=== PATIENT | female | born 1990 | race Asian ===

== ENCOUNTER 2017-04-04 12:55 | Emergency (ER) | payer MEDICAID ==
[2017-04-04 14:39] VITALS: BP 97/58
[2017-04-04 14:49] LABS: BILIRUBIN,URINE NEGATIVE (NEGATIVE); GLUCOSE, URINE (UA) NEGATIVE (NEGATIVE); KETONES,URINE (UA) NEGATIVE (NEGATIVE); LEUKOCYTE ESTERASE, URINE MODERATE (NEGATIVE); NITRITE,URINE NEGATIVE (NEGATIVE); OCCULT BLOOD,URINE SMALL (NEGATIVE); PROTEIN,URINE TRACE mg/dL (NEGATIVE); UROBILINOGEN,URINE 0.2 (NORMAL) E.U./dL (NORMAL)
[2017-04-04 14:51] LABS: CLARITY,URINE CLOUDY (CLEAR); HCG UR QUAL POSITIVE
[2017-04-04 15:06] LABS: SQUAMOUS EPITHELIAL CELL,UR MANY Squamous (<= Few)
[2017-04-04 15:07] LABS: BACTERIA,URINE Many /HPF (None Seen); MUCUS,URINE Moderate Strands
--- NOTE | 2017-04-04 16:17 | ED Physician Documentation ---
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 She has developed some urinary urgency frequency and dysuria and some lower abdominal cramping. She has developed some nausea today. She has not had any vomiting. She was seen at [facility] this morning and given 1 g of azithromycin along with her partner. Review of Systems Constitutional: denies: Fever Eyes: denies: Decreased vision Ears: denies: Ear pain Nose: denies: Congestion Throat: denies: Sore throat Cardiac: denies: Chest pain / pressure Respiratory: denies: Dyspnea, Cough GI: reports: Abdominal Pain, Nausea. denies: Vomiting : reports: Dysuria, Frequency Skin: denies: Rash Musculoskeletal: denies: Neck pain, Back pain, Extremity pain PD PAST MEDICAL HISTORY - Present Medications Home Medications: Ambulatory Orders Medication Instructions Recorded Confirmed Nitrofurantoin [Macrobid] 100 mg PO BID #10 capsule 04/04/17 Phenazopyridine HCl [Pyridium] 200 mg PO Q8HR PRN #10 tablet 04/04/17 - Allergies Allergies/Adverse Reactions: Allergies Allergy/AdvReac Type Severity Reaction Status Date / Time No Known Drug Allergies Allergy Verified 04/04/17 13:03 PD ED PE NORMAL - Vitals Vital signs reviewed: Yes (normal ) - General General: Alert and oriented X 3, No acute distress, Well developed/nourished - HEENT HEENT: Atraumatic, PERRL, EOMI - Respiratory Respiratory: No respiratory distress - Abdomen Abdomen: Soft, Non tender - Back Back: No CVA TTP, No spinal TTP - Derm Derm: Normal color, Warm and dry, No rash - Extremities Extremities: No deformity - Neuro Neuro: No motor deficit, No sensory deficit Eye Opening: Spontaneous Motor: Obeys Commands Verbal: Oriented GCS Score: 15 - Psych Psych: Normal mood, Normal affect Results - Vitals Vitals: Vital Signs - 24 hr 04/04/17 04/04/17 13:01 14:37 Temperature 37.5 C 37.3 C Heart Rate 65 72 Respiratory 18 17 Rate Blood Pressure 96/45 L 97/58 L O2 Saturation 100 100 Oxygen O2 Source Room air - Labs Labs: Laboratory Tests 04/04/17 14:40 Urine Color YELLOW Urine Clarity CLOUDY Urine pH 6.0 Ur Specific [place] >=1.030 H Urine Protein TRACE Urine Glucose (UA) NEGATIVE Urine Ketones NEGATIVE Urine Occult Blood SMALL H Urine Nitrite NEGATIVE Urine Bilirubin NEGATIVE Urine Urobilinogen 0.2 (NORMAL) Ur Leukocyte Esterase MODERATE H Urine RBC 6-10 H Urine WBC >25 H Ur Squamous Epith Cells MANY Squamous H Urine Bacteria Many H Urine Mucus Moderate Strands Ur Microscopic Review INDICATED Urine Culture Comments NOT INDICATED Urine HCG, Qual POSITIVE Procedures - Bedside sono Bedside sono by EMP: With use of bedside ultrasound the pelvis is imaged and there is an 8 week gestational sac with a viable 8 and half week fetus with a heart rate of 156 bpm. PD MEDICAL DECISION MAKING - ED course Complexity details: reviewed results, re-evaluated patient, considered differential, d/w patient, d/w family ED course: 26-year-old female with pelvic cramping is found to have urinary tract infection with greater than 25 white cells per high-powered field. She does appear to have a viable fetus in the uterus on bedside ultrasound. We will place her on some Macrobid for urinary tract infection as well as Pyridium and she will follow-up with [facility]. Departure - Departure Disposition: Home, Self Care Clinical Impression: Early stage of Urinary tract infection Qualifiers: Urinary tract infection type: acute cystitis Hematuria presence: without hematuria Qualified Code(s): N30.00 - Acute cystitis without hematuria Condition: Stable Instructions: ED Preg Morning Sickness, ED Care, ED UTI Cystitis Female Follow-Up: [facility] [Provider Group] Prescriptions: Phenazopyridine HCl [Pyridium] 200 mg PO Q8HR PRN #10 tablet PRN Reason: bladder irritation Nitrofurantoin [Macrobid] 100 mg PO BID #10 capsule Forms: Activity restrictions
== END 2017-04-04 16:20 | disposition home or self-care (01) ==
LOC: ED 12:55
DX: O23.11 Infections of bladder in pregnancy, first trimester (principal); Z3A.09 9 weeks gestation of pregnancy
CPT/HCPCS: 81001; 81003; 81025; 87086; 99283

== ENCOUNTER 2017-04-18 04:48 | Emergency (ER) | payer MEDICAID ==
[2017-04-18 05:10] LABS: BILIRUBIN,URINE NEGATIVE (NEGATIVE); GLUCOSE, URINE (UA) NEGATIVE (NEGATIVE); KETONES,URINE (UA) 15 mg/dL (NEGATIVE); LEUKOCYTE ESTERASE, URINE TRACE (NEGATIVE); NITRITE,URINE NEGATIVE (NEGATIVE); OCCULT BLOOD,URINE NEGATIVE (NEGATIVE); PROTEIN,URINE NEGATIVE (NEGATIVE); UROBILINOGEN,URINE 0.2 (NORMAL) E.U./dL (NORMAL)
[2017-04-18 05:18] LABS: CLARITY,URINE HAZY (CLEAR); HCG UR QUAL POSITIVE
[2017-04-18 05:30] LABS: BACTERIA,URINE Few /HPF (None Seen); MUCUS,URINE Moderate Strands; RBC,URINE 0-5 /HPF (0-5); SQUAMOUS EPITHELIAL CELL,UR FEW Squamous (<= Few)
[2017-04-18] MEDS ORDERED: AMOX/CLAV 875 MG/125 MG TABLET PO STA (05:39)
[2017-04-18] MEDS ORDERED: ACETAMINOPHEN 500 MG TABLET PO STA (05:44)
--- NOTE | 2017-04-18 05:47 | ED Physician Documentation ---
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 patient states that she has had some pain with but this morning it was worse than usual. patient did not take anything for the pain. patient has not had care but has been to the emergency department for uti last week and was found to have a viable iup. Review of Systems Constitutional: denies: Fever, Chills Eyes: reports: Reviewed and negative Ears: reports: Reviewed and negative Nose: reports: Reviewed and negative Throat: reports: Reviewed and negative Cardiac: reports: Reviewed and negative Respiratory: reports: Reviewed and negative GI: reports: Abdominal Pain, Nausea. denies: Vomiting, Constipation, Diarrhea : reports: Discharge. denies: Dysuria, Frequency, Vaginal bleeding Skin: denies: Rash, Lesions Neurologic: denies: Generalized weakness, Focal weakness, Numbness Immunocompromised: denies: Immunocompromised PD PAST MEDICAL HISTORY - Past Medical History Past Medical History: Yes - Past Surgical History Past Surgical History: Yes General: Appendectomy - Present Medications Home Medications: Ambulatory Orders Medication Instructions Recorded Confirmed Nitrofurantoin [Macrobid] 100 mg PO BID #10 capsule 04/04/17 Phenazopyridine HCl [Pyridium] 200 mg PO Q8HR PRN #10 tablet 04/04/17 Amox/Clav 875/125 [Augmentin] 1 each PO Q12H #14 tablet 04/18/17 - Allergies Allergies/Adverse Reactions: Allergies Allergy/AdvReac Type Severity Reaction Status Date / Time No Known Drug Allergies Allergy Verified 04/04/17 13:03 - Social History Does the pt smoke?: No Smoking Status: Never smoker Does the pt drink ETOH?: Yes Does the pt have substance abuse?: No - Immunizations Immunizations are current?: Yes PD ED PE NORMAL - Vitals Vital signs reviewed: Yes - General General: Alert and oriented X 3, No acute distress - HEENT HEENT: Atraumatic, PERRL - Neck Neck: Supple, no meningeal sign, No JVD - Cardiac Cardiac: RRR, No murmur - Respiratory Respiratory: No respiratory distress - Abdomen Abdomen: Soft - Derm Derm: Normal color, Warm and dry, No rash - Neuro Neuro: Alert and oriented X 3, No motor deficit, No sensory deficit, Normal speech PD ED PE EXPANDED - Abdomen Abdomen: Tender to palpation, RLQ - Female Female : Vaginal Discharge. No: Dilated cervix, Tissue present Results - Vitals Vitals: Vital Signs - 24 hr 04/18/17 04:51 Temperature 36.9 C Heart Rate 80 Respiratory 16 Rate Blood Pressure 97/59 L O2 Saturation 100 Oxygen O2 Source Room air - Labs Labs: Laboratory Tests 04/18/17 05:03 Urine Color YELLOW Urine Clarity HAZY Urine pH 6.0 Ur Specific [place] >=1.030 H Urine Protein NEGATIVE Urine Glucose (UA) NEGATIVE Urine Ketones 15 H Urine Occult Blood NEGATIVE Urine Nitrite NEGATIVE Urine Bilirubin NEGATIVE Urine Urobilinogen 0.2 (NORMAL) Ur Leukocyte Esterase TRACE H Urine RBC 0-5 Urine WBC 11-25 H Ur Squamous Epith Cells FEW Squamous Urine Bacteria Few Urine Mucus Moderate Strands Ur Microscopic Review INDICATED Urine Culture Comments INDICATED Urine HCG, Qual POSITIVE PD MEDICAL DECISION MAKING - ED course Complexity details: reviewed old records, reviewed results, re-evaluated patient , considered differential, d/w patient, d/w family ED course: Patient was seen and examined at bedside. urine was collected. pelvic exam was performed. bedside ultrasound was performed and showed a viable iup with normal heart rate. Patient was found to have some persistent bacteria and was started on augmentin, which would also cover for ghonorrea. (patient was treated for chlamydia). Patient was made aware of the findings and was stable for discharge and outpatient follow up. (patient had follow up next week ) Departure - Departure Disposition: 01 Home, Self Care Clinical Impression: Urinary tract infection, Early stage of Condition: Good Instructions: ED UTI Cystitis Female Follow-Up: primary,care provider [Other] - Within 1 week Prescriptions: Amox/Clav 875/125 [Augmentin] 1 each PO Q12H #14 tablet Comments: Your fetus is well appearing today. Your symptoms could be caused by your fibroid or part of your . You also were found to have a few bacteria in your urine so you are being started on another antibiotic. Your culture results will be back in a few days and you will be called with the results. it is important to stay well hydrated. You should follow up with your doctor on thursday. You may return to the emergency department at any time for new, worsening or uncontrollable symptoms. Forms: Activity restrictions
[2017-04-18 06:04] VITALS: BP 106/64
== END 2017-04-18 06:04 | disposition home or self-care (01) ==
LOC: ED 04:48
DX: O23.41 Unspecified infection of urinary tract in pregnancy, first trimester (principal); B96.89 Other specified bacterial agents as the cause of diseases classified elsewhere; Z3A.10 10 weeks gestation of pregnancy
CPT/HCPCS: 81001; 81025; 87086; 87210; 87491; 87591; 99283; 99284; A9270; 81003

== ENCOUNTER 2023-09-30 10:14 | Emergency (ER) | payer MEDICAID ==
[2023-09-30 10:29] VITALS: BP 107/63; O2SAT 99
[2023-09-30 11:27] LABS: B. PARAPERTUSSIS- RESP PCR PAN NOT DETECTED; B. PERTUSSIS- RESP PCR PANEL NOT DETECTED; C. PNEUMONIAE- RESP PCR PANEL NOT DETECTED; CORONAVIRUS 229E-RESP PCR NOT DETECTED; CORONAVIRUS HKU1-RESP PCR NOT DETECTED; CORONAVIRUS NL63-RESP PCR NOT DETECTED; CORONAVIRUS OC43-RESP PCR NOT DETECTED; HUMAN METAPNEUMOVIRUS NOT DETECTED; INFLUENZA A- RESP PCR PANEL NOT DETECTED; INFLUENZA B - RESP PCR PANEL NOT DETECTED; M. PNEUMONIAE- RESP PCR PANEL NOT DETECTED; PARAINFLUENZA VIRUS 1 NOT DETECTED; PARAINFLUENZA VIRUS 2 NOT DETECTED; PARAINFLUENZA VIRUS 3 NOT DETECTED; PARAINFLUENZA VIRUS 4 NOT DETECTED; RHINOVIRUS/ENTEROVIRUS DETECTED; RSV- RESP PCR PANEL NOT DETECTED; SARS-CoV-2 -RESP PCR PANEL NOT DETECTED
--- NOTE | 2023-09-30 13:05 | ED Physician Documentation ---
History of Present Illness - Stated complaint Stated Complaint: PATRICK,CHILLS,SHAKES - Chief complaint Chief Complaint: General - History obtained from History obtained from: Patient - Additonal information Additional information: The patient comes to the emergency department chief complaint of headache, feeling of fever and chills, body aches, congestion, and mild cough that has been going on over the past several days. She has not been tested for anything. She has been trying to drink water but she just does not feel good. No other complaints at this time. PD PAST MEDICAL HISTORY - Past Medical History Past Medical History: No - Past Surgical History Past Surgical History: Yes General: Appendectomy - Present Medications Home Medications: Ambulatory Orders Medication Instructions Recorded Confirmed Nitrofurantoin [Macrobid] 100 mg PO BID #10 capsule 04/04/17 Phenazopyridine HCl [Pyridium] 200 mg PO Q8HR PRN #10 tablet 04/04/17 Amox/Clav 875/125 [Augmentin] 1 each PO Q12H #14 tablet 04/18/17 - Allergies Allergies/Adverse Reactions: Allergies Allergy/AdvReac Type Severity Reaction Status Date / Time No Known Drug Allergies Allergy Verified 09/30/23 10:22 - Social History Does the pt smoke?: No Smoking Status: Never smoker Does the pt drink ETOH?: Yes Does the pt have substance abuse?: No - Immunizations Immunizations are current?: Yes PD ED PE NORMAL - Vitals Vital signs reviewed: Yes - General General: Alert and oriented X 3, No acute distress, Well developed/nourished - HEENT HEENT: Atraumatic, PERRL, EOMI, Moist mucous membranes - Neck Neck: Supple, no meningeal sign - Cardiac Cardiac: RRR, No murmur, Strong equal pulses - Respiratory Respiratory: No respiratory distress, Clear bilaterally - Abdomen Abdomen: Soft, Non tender, Non distended - Derm Derm: Normal color, Warm and dry, No rash - Extremities Extremities: No deformity - Neuro Neuro: Other (Alert, grossly oriented, Grossly intact) - Psych Psych: Normal mood, Normal affect Results - Vitals Vitals: Oxygen O2 Source Room air - Labs Labs: Laboratory Tests 09/30/23 10:24 Nasal Adenovirus (PCR) NOT DETECTED Nasal B. parapertussis DNA (PCR) NOT DETECTED Nasal Coronavir 229E PCR NOT DETECTED Nasal Coronavir HKU1 PCR NOT DETECTED Nasal Coronavir NL63 PCR NOT DETECTED Nasal Coronavir OC43 PCR NOT DETECTED Nasal Enterovir/Rhinovir PCR DETECTED A Nasal Influenza B PCR NOT DETECTED Nasal Influenza A PCR NOT DETECTED Nasal Parainfluen 1 PCR NOT DETECTED Nasal Parainfluen 2 PCR NOT DETECTED Nasal Parainfluen 3 PCR NOT DETECTED Nasal Parainfluen 4 PCR NOT DETECTED Nasal RSV (PCR) NOT DETECTED Nasal B.pertussis DNA PCR NOT DETECTED Nasal C.pneumoniae (PCR) NOT DETECTED [place] Human Metapneumo PCR NOT DETECTED Nasal M.pneumoniae (PCR) NOT DETECTED Nasal SARS-CoV-2 (PCR) NOT DETECTED PD Medical Decision Making - ED course Complexity details: reviewed results, re-evaluated patient, considered differential, d/w patient ED course: The patient was treated symptomatically in the emergency department and worked up with respiratory PCR panel which came back positive for rhinovirus. I discussed with the patient that this illness generally lasts for a week or 2 and that is likely why she is still not feeling better. We have discussed symptomatic management at home as well as usual indications for follow-up and return. Departure - Departure Disposition: 01 Home, Self Care Clinical Impression: Rhinovirus infection Condition: Stable Instructions: ED Viral Syndrome Comments: Your viral panel is positive for rhinovirus. This is a virus that can cause anywhere from cold-like symptoms to fevers and influenza symptoms. In general, the symptoms pass in several days to couple of weeks. You may take ibuprofen 600 mg every 6 hours and Tylenol 650 mg every 4 hours, as needed for fevers or aches. You need to be drinking plenty of water. You should aim to drink 8 to 10 cups of water every day. If you are not vomiting, then you will simply need to make yourself drink even if you do not feel like it. Forms: PCP List Discharge Date/Time: 09/30/23 13:07
== END 2023-09-30 13:07 | disposition home or self-care (01) ==
LOC: ED 10:14
DX: B34.8 Other viral infections of unspecified site (principal)
CPT/HCPCS: 87633; 99283